=== PATIENT | female | born 1965 | race Asian ===

== ENCOUNTER 2017-12-04 14:34 | Outpatient (CLI) | payer BC ==
--- NOTE | 2017-12-04 15:10 | RAD ---
KUB: Comparison: None. History: Kidney stones. FINDINGS: Anterior views of the abdomen shows a nonspecific, nonobstructed bowel gas pattern. Moderate stool is seen in the colon. No obvious calcifications are seen projecting over either renal shadow or along t he course of the ureters. IMPRESSION: No urinary collecting system calculi identified. POS: [facility]
[2017-12-04 15:14] LABS: Anion Gap 10 mmol/L (10-20); BUN (Urea Nitrogen) 10 mg/dL (9.8-20.1); Calc. Creatinine Clearance 0 mL/min (70-130); Calcium 9.9 mg/dL (7.8-10.44); Carbon Dioxide 31 mmol/L (22-29); Chloride 103 mmol/L (98-107); Estimated GFR-MDRD Greater than 90; Glucose 75 mg/dL (70-105); Potassium 3.7 mmol/L (3.5-5.1); Sodium 140 mmol/L (136-145)
[2017-12-04 16:27] LABS: Bilirubin Negative (Negative); Blood, Urine Small (Negative); Clarity CLEAR (Clear); Glucose, Urine (Dipstick) Negative (Negative); Leukocyte Negative (Negative); Nitrite Negative (Negative); Protein, Urine (Dipstick) Negative (Neg-Trace); Specific Gravity, Urine 1.009 (1.002-1.036); Urobilinogen 0.2 mg/dL (0.2-1.0)
[2017-12-04 16:54] LABS: Bacteria/HPF None Seen HPF (None Seen); Hyaline Casts/LPF NONE SEEN LPF (0-3 Hyaline); RBC/HPF 0-3 HPF (0-3); Squamous Epithelial 0-3 HPF (0-3); WBC/HPF None Seen HPF (0-3)
== END 2017-12-04 14:35 | disposition home or self-care (01) ==
LOC: RAD 14:34
PROVIDERS: ATTEND Urology
DX: N20.0 Calculus of kidney (principal); R31.29 Other microscopic hematuria
CPT/HCPCS: 74018; 80048; 81001; 87086

== ENCOUNTER 2017-12-19 15:50 | Outpatient (CLI) | payer BC | END 2017-12-19 15:51 | disposition home or self-care (01) | LOC: BICMAMMO 15:50 | PROVIDERS: ATTEND Family Medicine | DX: Z12.31 Encounter for screening mammogram for malignant neoplasm of breast (principal); Z80.3 Family history of malignant neoplasm of breast; Z85.3 Personal history of malignant neoplasm of breast | CPT/HCPCS: 77063; 77067 ==